=== PATIENT | male | born 1975 | race Caucasian/White ===

== ENCOUNTER 2021-09-10 07:13 | Emergency (ER) | payer MEDICAID ==
[~2021-09-10] VITALS: Ht 165.1 cm; Wt 90.7 kg
[2021-09-10 07:25] VITALS: BP 150/100
--- NOTE | 2021-09-10 07:25 | NUR ---
TO BED AMBULATORY
--- NOTE | 2021-09-10 07:37 | NUR ---
DR CLEMENTE AT BEDSIDE EVALUATING PT
[2021-09-10] MEDS ORDERED: HYDR25CA1 PO (07:48)
[2021-09-10] MEDS ORDERED: TRAZ-343 PO (07:48)
--- NOTE | 2021-09-10 08:22 | NUR ---
Patient discharged with v/s stable. Written and verbal after care instructions given and explained. Patient alert, oriented and verbalized understanding of instructions. Ambulatory with steady gait. All questions addressed prior to discharge. ID band removed. Patient advised to follow up with PMD. Rx of HYDROXYZINE, TRAZADONE given. Patient educated on indication of medication including possible reaction and side effects. Opportunity to ask questions provided and answered.
== END 2021-09-10 08:22 | disposition home or self-care (01) ==
LOC: MED 07:13
DX: F41.9 Anxiety disorder, unspecified (principal); G47.00 Insomnia, unspecified; Z72.89 Other problems related to lifestyle
CPT/HCPCS: 99283